=== PATIENT | male | born 1990 | race African-American/Black ===

== ENCOUNTER 2025-04-27 18:46 | Emergency (ER) | payer MEDICAID ==
[~2025-04-27] VITALS: Ht 180.3 cm; Wt 104.0 kg
[2025-04-27 18:49] VITALS: PULSE 95; RESP 16; O2SAT 98
[2025-04-27 18:51] VITALS: BP 138/82; TEMP 36.8; O2SAT 97
[2025-04-27] MEDS ORDERED: AMOX1TAB16 MT (20:15)
[2025-04-27] MEDS ORDERED: NAPR-681 MT (20:16)
== END 2025-04-27 20:56 | disposition home or self-care (01) ==
LOC: ER 18:46
DX: S61.4 Open wound of hand (principal); K13.79 Other lesions of oral mucosa; Z79.1 Long term (current) use of non-steroidal anti-inflammatories (NSAID); Y04.1XXA Assault by human bite, initial encounter; Y93.89 Activity, other specified; Y92.89 Other specified places as the place of occurrence of the external cause; Y99.8 Other external cause status
CPT/HCPCS: 99283